=== PATIENT | male | born 1960 | race Caucasian/White ===

== ENCOUNTER 2016-08-15 07:32 | Day surgery (SDC) | payer MEDICARE, MEDICAID ==
[~2016-08-15] VITALS: Ht 170.2 cm; Wt 83.9 kg
--- NOTE | ~2016-08-15 | OR ---
PATIENT'S NAME: DALLAS CALI [facility] AGE: 55 Y [address] ROOM: [place] [address] LOCATION: [facility] [place] ADMIT DATE: 08/15/2016 OR/Procedure Report DISCHARGE DATE: FAMILY PHYSICIAN: Daljit Diaz MD ATTENDING PHYSICIAN: Yoana Grewal SURGEON: Yoana Grewal MD BRAILLE PROOFREADER: DATE OF PROCEDURE: 08/15/2016 PREOPERATIVE DIAGNOSIS: Microscopic hematuria. POSTOPERATIVE DIAGNOSIS: Microscopic hematuria. PROCEDURE PERFORMED: Cystoscopy with bilateral retrograde pyelogram. ANESTHESIA: General. COMPLICATIONS: None. INDICATION FOR PROCEDURE: The patient is a 55-year-old male with microscopic hematuria who is scheduled for renal transplantation. The patient is here for evaluation of his microscopic hematuria. DETAILS OF PROCEDURE: After informed consent was obtained, the patient was taken to the operating room. A general mask anesthetic was applied, and he was placed in the dorsal lithotomy position. The groin area was prepped and draped in a normal sterile fashion. Cystoscope was then introduced into the urethra and bladder without difficulty. The bladder mucosa was within normal limits without masses or lesions. An 8-Ukrainian cone-tipped catheter was placed in the patient's right ureteral orifice. Contrast was injected. This was repeated on the contralateral side. On plain film, there were no bony abnormalities. No visible stones noted. With injection of the contrast, the ureters were of normal caliber without filling defects. The collecting systems both were normal in size, again without masses or filling defects. Both systems drained well. Retrograde pyelograms were normal bilaterally. The urethra was normal. No strictures were noted. The prostatic urethra was nonobstructive. The bladder was then empty and the procedure terminated. The patient tolerated the procedure well and transferred to recovery room in good condition. YOANA GREWAL MD PATIENT'S NAME: DALLAS CALI [facility] AGE: 55 Y [address] ROOM: [place] [address] LOCATION: [facility] [place] ADMIT DATE: 08/15/2016 OR/Procedure Report DISCHARGE DATE: FAMILY PHYSICIAN: Daljit Diaz MD ATTENDING PHYSICIAN: Yoana Grewal/german /[id number] CC: MD Amadou Jason MD d: 08/15/16 1305 t: 09/05/16 1009, OPERATIVE SUMMARY
[~2016-08-15 07:32] MED LIST: CARDIZEM CD360 MG PO; DELTASONE20 MG PO; LASIX80 MG PO; NORCO 5-325 MG1 TAB PO; NORVASC5 MG PO; PHOSLO667 MG PO; PREDNISONE2.5 MG PO; PROTONIX40 MG PO; TOPROL XL 5050 MG PO; TYLENOL325 MG PO; VENLAFAXINE H37.5 M1 PO; ZOLOFT50 MG PO
[2016-08-15 08:13] LABS: BASOPHIL # 0.1 K/uL (0.0-0.2); EOSINOPHIL # 0.3 K/uL (0.0-0.5); EOSINOPHIL % 4.5 %; HEMATOCRIT 35.8 % (37.0-53.0); HEMOGLOBIN 12.3 g/dL (12.0-17.0); IMMATURE GRANULOCYTE % 0.4 %; LYMPHOCYTE # 1.2 K/uL (0.8-4.0); LYMPHOCYTE % 16.4 %; MCH 34.1 pg (27.0-34.0); MCHC 34.4 gm/dL (32.0-36.5); MCV 99.2 fl (83.0-98.0); MONOCYTE # 0.7 K/uL (0.0-1.0); MONOCYTE % 9.9 %; MPV 9.3 fl (9.4-12.4); NEUTROPHIL # (ANC) 4.9 K/uL (1.4-9.0); NEUTROPHIL % 67.8 %; NRBC % 0 /100WBC (0-0.00); PLATELET COUNT 201 K/uL (150-450); RBC 3.61 M/uL (4.00-6.00); WBC 7.2 K/uL (4.0-11.0)
[2016-08-15 08:29] LABS: ALBUMIN 3.3 gm/dL (3.5-5.0); ANION GAP 13.9 (10.0-19.0); CALCIUM 7.7 mg/dL (8.5-10.5); POTASSIUM 3.9 mMol/L (3.7-5.1); TOTAL BILIRUBIN 0.4 mg/dL (0.0-1.5); TOTAL PROTEIN 6.8 g/dL (6.0-8.4)
[2016-08-15 08:41] LABS: CREATININE 9.2 mg/dL (0.6-1.3)
[2016-09-12] MEDS ORDERED: ASPIRIN EC81 MG PO (15:34)
[2016-09-12] MEDS ORDERED: COREG6.25 MG PO (15:35)
[2016-09-12] MEDS ORDERED: MULTIVITAMIN (15:35)
[2016-09-12] MEDS ORDERED: DAILY MULTIVIT1 EAC1 PO (15:36)
[2016-09-12] MEDS ORDERED: MYCOPHENOLIC PO (15:40)
[2016-09-12] MEDS ORDERED: NYSTATIN100000 UNI PO (15:42)
[2016-09-12] MEDS ORDERED: PERCOCET 5-3251 EACH PO (15:43)
[2016-09-12] MEDS ORDERED: DELTASONE5 MG PO (15:47)
[2016-09-12] MEDS ORDERED: ZANTAC (NON-FO150 MG PO (15:47)
[2016-09-12] MEDS ORDERED: SENNA8.6 MG PO (15:48)
[2016-09-12] MEDS ORDERED: BACTRIM 400-801 EACH PO (15:50)
[2016-09-12] MEDS ORDERED: PROGRAF 1MG CAPS1 MG PO (15:51)
[2016-09-12] MEDS ORDERED: VALCYTE450 MG PO (15:52)
[2016-09-12] MEDS ORDERED: ZOLOFT50 MG PO (15:54)
[2016-09-12] MEDS ORDERED: TRIAMCINOLONE 080 GM TOP (15:55)
[2016-09-12] MEDS ORDERED: ONE DAILY COMP1 EAC1 PO (15:58)
== END 2016-08-15 10:25 | disposition disaster alternative care site (69) ==
LOC: GSDC 07:32
PROVIDERS: Urology
PROC: BT14YZZ Fluoroscopy of Kidneys, Ureters and Bladder using Other Contrast (ICD-10-PCS; principal; 2016-08-15)
DX: R31.29 Other microscopic hematuria (principal); F32.9 Major depressive disorder, single episode, unspecified; K21.9 Gastro-esophageal reflux disease without esophagitis; I12.0 Hypertensive chronic kidney disease with stage 5 chronic kidney disease or end stage renal disease; E11.22 Type 2 diabetes mellitus with diabetic chronic kidney disease; N18.6 End stage renal disease; F03.90 Unspecified dementia, unspecified severity, without behavioral disturbance, psychotic disturbance, mood disturbance, and anxiety; E78.5 Hyperlipidemia, unspecified; Z87.891 Personal history of nicotine dependence; Z99.2 Dependence on renal dialysis; Z90.81 Acquired absence of spleen; Z79.899 Other long term (current) drug therapy; Z98.890 Other specified postprocedural states
CPT/HCPCS: J1100; J1956; J2001; J2250; J2765; J7030

== ENCOUNTER → 2016-09-08 | Outpatient (CLI) | payer MEDICARE, MEDICAID ==
[~2016-09-08] MED LIST changes: +ASPIRIN EC81 MG PO; +BACTRIM 400-801 EACH PO; +COREG6.25 MG PO; +DAILY MULTIVIT1 EAC1 PO; +DELTASONE5 MG PO; +MULTIVITAMIN; +MYCOPHENOLIC PO; +NYSTATIN100000 UNI PO; +ONE DAILY COMP1 EAC1 PO; +PERCOCET 5-3251 EACH PO; +PROGRAF 1MG CAPS1 MG PO; +SENNA8.6 MG PO; +TRIAMCINOLONE 080 GM TOP; +VALCYTE450 MG PO; +ZANTAC (NON-FO150 MG PO
[2016-09-08 10:01] LABS: BASOPHIL % 0.3 %; EOSINOPHIL # 0.7 K/uL (0.0-0.5); EOSINOPHIL % 6.8 %; IMMATURE GRANULOCYTE # 0.1 K/uL (0.0-0.3); IMMATURE GRANULOCYTE % 1.3 %; LYMPHOCYTE % 9.2 %; MCV 100.5 fl (83.0-98.0); MONOCYTE # 1.1 K/uL (0.0-1.0); MONOCYTE % 10.5 %; MPV 9.5 fl (9.4-12.4); NEUTROPHIL # (ANC) 7.4 K/uL (1.4-9.0); NEUTROPHIL % 71.9 %; NRBC % 0 /100WBC (0-0.00); RDW-CV 14.2 % (11.9-14.6); WBC 10.3 K/uL (4.0-11.0)
[2016-09-08 10:02] LABS: HEMATOCRIT 21.4 % (37.0-53.0); HEMOGLOBIN 7.2 g/dL (12.0-17.0); MCH 33.8 pg (27.0-34.0); MCHC 33.6 gm/dL (32.0-36.5); PLATELET COUNT 294 K/uL (150-450); RBC 2.13 M/uL (4.00-6.00)
[2016-09-08 10:05] LABS: ANION GAP 13.9 (10.0-19.0); CALCIUM 7.9 mg/dL (8.5-10.5); MAGNESIUM 2.3 mg/dL (1.8-2.6); PHOSPHORUS 2.8 mg/dL (2.5-4.9); POTASSIUM 4.9 mMol/L (3.7-5.1)
[2016-09-08 10:06] LABS: CREATININE 4.4 mg/dL (0.6-1.3)
== END | disposition disaster alternative care site (69) ==
LOC: LHHL 09:41
PROVIDERS: Transplant Surgery
DX: Z94.0 Kidney transplant status (principal); Z51.81 Encounter for therapeutic drug level monitoring

== ENCOUNTER → 2016-09-15 | Outpatient (CLI) | payer MEDICARE, MEDICAID ==
[2016-09-15 09:14] LABS: BASOPHIL # 0.1 K/uL (0.0-0.2); BASOPHIL % 0.8 %; EOSINOPHIL # 0.2 K/uL (0.0-0.5); EOSINOPHIL % 1.6 %; HEMOGLOBIN 8.3 g/dL (12.0-17.0); IMMATURE GRANULOCYTE # 0.4 K/uL (0.0-0.3); IMMATURE GRANULOCYTE % 2.9 %; LYMPHOCYTE # 1.7 K/uL (0.8-4.0); LYMPHOCYTE % 13.4 %; MCH 32.4 pg (27.0-34.0); MCV 102.3 fl (83.0-98.0); MONOCYTE # 0.7 K/uL (0.0-1.0); MONOCYTE % 5.5 %; MPV 8.7 fl (9.4-12.4); NEUTROPHIL # (ANC) 9.6 K/uL (1.4-9.0); NEUTROPHIL % 75.8 %; NRBC % 0 /100WBC (0-0.00); RBC 2.56 M/uL (4.00-6.00); WBC 12.6 K/uL (4.0-11.0)
[2016-09-15 09:15] LABS: HEMATOCRIT 26.2 % (37.0-53.0); MCHC 31.7 gm/dL (32.0-36.5); PLATELET COUNT 386 K/uL (150-450); RDW-CV 16.9 % (11.9-14.6)
[2016-09-15 09:24] LABS: ANION GAP 12.4 (10.0-19.0); CALCIUM 8.3 mg/dL (8.5-10.5); CREATININE 1.9 mg/dL (0.6-1.3); MAGNESIUM 1.6 mg/dL (1.8-2.6); PHOSPHORUS 2.2 mg/dL (2.5-4.9); POTASSIUM 5.4 mMol/L (3.7-5.1)
== END | disposition disaster alternative care site (69) ==
LOC: LHHL 09:05
PROVIDERS: Transplant Surgery
DX: Z48.22 Encounter for aftercare following kidney transplant (principal); I12.0 Hypertensive chronic kidney disease with stage 5 chronic kidney disease or end stage renal disease; N18.6 End stage renal disease; Z94.0 Kidney transplant status

== ENCOUNTER → 2016-09-19 | Outpatient (CLI) | payer MEDICARE, MEDICAID ==
[2016-09-19 10:08] LABS: CALCIUM 8.4 mg/dL (8.5-10.5); CREATININE 1.6 mg/dL (0.6-1.3); MAGNESIUM 1.6 mg/dL (1.8-2.6); PHOSPHORUS 2.5 mg/dL (2.5-4.9)
[2016-09-19 10:16] LABS: ANION GAP 11.6 (10.0-19.0); POTASSIUM 5.6 mMol/L (3.7-5.1)
[2016-09-19 10:25] LABS: HEMOGLOBIN 9.3 g/dL (12.0-17.0); MCH 33.3 pg (27.0-34.0); MCHC 32.1 gm/dL (32.0-36.5); MCV 103.9 fl (83.0-98.0); MPV 9.2 fl (9.4-12.4); PLATELET COUNT 401 K/uL (150-450); RBC 2.79 M/uL (4.00-6.00); RDW-CV 16.7 % (11.9-14.6)
[2016-09-19 11:29] LABS: ABSOLUTE NEUTROPHIL CT (ANC) 7.1 K/uL (1.4-9.0); LYMPHOCYTE # 1.7 K/uL (0.8-4.0); LYMPHOCYTE % 17 %; SEGMENTED NEUTROPHIL # 7.1 K/uL (1.4-9.0); SEGMENTED NEUTROPHIL % 71 %
== END | disposition disaster alternative care site (69) ==
LOC: LHHL 09:52
PROVIDERS: Transplant Surgery
DX: Z48.22 Encounter for aftercare following kidney transplant (principal); I12.0 Hypertensive chronic kidney disease with stage 5 chronic kidney disease or end stage renal disease; Z94.0 Kidney transplant status; N18.6 End stage renal disease

== ENCOUNTER → 2016-09-22 | Outpatient (CLI) | payer MEDICARE, MEDICAID ==
[2016-09-22 09:42] LABS: BASOPHIL # 0.1 K/uL (0.0-0.2); EOSINOPHIL # 0.1 K/uL (0.0-0.5); EOSINOPHIL % 1.4 %; HEMATOCRIT 31.3 % (37.0-53.0); IMMATURE GRANULOCYTE # 0.1 K/uL (0.0-0.3); IMMATURE GRANULOCYTE % 0.7 %; LYMPHOCYTE # 1.8 K/uL (0.8-4.0); LYMPHOCYTE % 18.6 %; MCH 33.2 pg (27.0-34.0); MCHC 31.9 gm/dL (32.0-36.5); MONOCYTE # 0.7 K/uL (0.0-1.0); MONOCYTE % 7.7 %; NEUTROPHIL # (ANC) 6.7 K/uL (1.4-9.0); NEUTROPHIL % 70.6 %; NRBC % 0 /100WBC (0-0.00); PLATELET COUNT 373 K/uL (150-450); RBC 3.01 M/uL (4.00-6.00); WBC 9.5 K/uL (4.0-11.0)
[2016-09-22 09:52] LABS: ANION GAP 11.4 (10.0-19.0); CALCIUM 8.6 mg/dL (8.5-10.5); CREATININE 1.6 mg/dL (0.6-1.3); MAGNESIUM 1.7 mg/dL (1.8-2.6); PHOSPHORUS 2.4 mg/dL (2.5-4.9); POTASSIUM 5.4 mMol/L (3.7-5.1)
== END | disposition disaster alternative care site (69) ==
LOC: LHHL 09:24
PROVIDERS: Transplant Surgery
DX: Z48.22 Encounter for aftercare following kidney transplant (principal); N18.6 End stage renal disease; I12.0 Hypertensive chronic kidney disease with stage 5 chronic kidney disease or end stage renal disease

== ENCOUNTER → 2016-09-26 | Outpatient (CLI) | payer MEDICARE, MEDICAID ==
[2016-09-26 09:25] LABS: BILIRUBIN URINE NEGATIVE (NEGATIVE); BLOOD URINE 150 /UL (NEGATIVE); COLOR URINE YELLOW (YELLOW); GLUCOSE URINE NEGATIVE (NEGATIVE); KETONE URINE NEGATIVE (NEGATIVE); LEUKOCYTES URINE NEGATIVE /UL (NEGATIVE); NITRITE URINE NEGATIVE (NEGATIVE); PROTEIN URINE NEGATIVE (NEGATIVE); TURBIDITY URINE 1+ (CLEAR); UROBILINOGEN URINE NORMAL (NORMAL)
[2016-09-26 09:35] LABS: RBC URINE 20-50 #/HPF (NEGATIVE); WBC URINE RARE #/HPF (NEGATIVE)
[2016-09-26 09:36] LABS: BACTERIA URINE NEGATIVE (NEGATIVE); EPITHELIAL URINE RARE #/HPF (NEGATIVE)
[2016-09-26 09:39] LABS: BASOPHIL # 0.1 K/uL (0.0-0.2); BASOPHIL % 0.7 %; EOSINOPHIL # 0.1 K/uL (0.0-0.5); EOSINOPHIL % 1.6 %; HEMATOCRIT 30.7 % (37.0-53.0); HEMOGLOBIN 9.7 g/dL (12.0-17.0); IMMATURE GRANULOCYTE # 0.1 K/uL (0.0-0.3); IMMATURE GRANULOCYTE % 0.9 %; LYMPHOCYTE % 24.3 %; MCH 33.2 pg (27.0-34.0); MCHC 31.6 gm/dL (32.0-36.5); MCV 105.1 fl (83.0-98.0); MONOCYTE # 0.6 K/uL (0.0-1.0); MONOCYTE % 7.4 %; MPV 9.2 fl (9.4-12.4); NEUTROPHIL # (ANC) 5.3 K/uL (1.4-9.0); NEUTROPHIL % 65.1 %; NRBC % 0 /100WBC (0-0.00); PLATELET COUNT 380 K/uL (150-450); RBC 2.92 M/uL (4.00-6.00); RDW-CV 17.1 % (11.9-14.6); WBC 8.2 K/uL (4.0-11.0)
[2016-09-26 09:48] LABS: ANION GAP 10.7 (10.0-19.0); CALCIUM 8.3 mg/dL (8.5-10.5); CREATININE 1.6 mg/dL (0.6-1.3); MAGNESIUM 1.8 mg/dL (1.8-2.6); PHOSPHORUS 2.8 mg/dL (2.5-4.9)
[2016-09-26 09:49] LABS: POTASSIUM 5.7 mMol/L (3.7-5.1)
== END ==
LOC: LHHL 09:16
PROVIDERS: Transplant Surgery
DX: Z48.22 Encounter for aftercare following kidney transplant (principal); Z94.0 Kidney transplant status; Z79.899 Other long term (current) drug therapy

== ENCOUNTER → 2016-10-03 | Outpatient (CLI) | payer MEDICARE, MEDICAID ==
[2016-10-03 09:45] LABS: BASOPHIL # 0.1 K/uL (0.0-0.2); BASOPHIL % 0.6 %; EOSINOPHIL # 0.2 K/uL (0.0-0.5); EOSINOPHIL % 1.9 %; HEMOGLOBIN 11.1 g/dL (12.0-17.0); IMMATURE GRANULOCYTE # 0.2 K/uL (0.0-0.3); LYMPHOCYTE # 1.9 K/uL (0.8-4.0); LYMPHOCYTE % 20.7 %; MCH 33.7 pg (27.0-34.0); MCHC 31.7 gm/dL (32.0-36.5); MCV 106.4 fl (83.0-98.0); MONOCYTE # 0.6 K/uL (0.0-1.0); MONOCYTE % 5.9 %; NEUTROPHIL # (ANC) 6.4 K/uL (1.4-9.0); NEUTROPHIL % 68.9 %; NRBC % 0 /100WBC (0-0.00); PLATELET COUNT 334 K/uL (150-450); RBC 3.29 M/uL (4.00-6.00); WBC 9.3 K/uL (4.0-11.0)
[2016-10-03 09:55] LABS: ANION GAP 12.1 (10.0-19.0); CALCIUM 8.3 mg/dL (8.5-10.5); CREATININE 1.7 mg/dL (0.6-1.3); MAGNESIUM 1.7 mg/dL (1.8-2.6); PHOSPHORUS 2.3 mg/dL (2.5-4.9); POTASSIUM 5.1 mMol/L (3.7-5.1)
== END ==
LOC: LHHL 09:35
PROVIDERS: Transplant Surgery
DX: Z48.22 Encounter for aftercare following kidney transplant (principal); I12.9 Hypertensive chronic kidney disease with stage 1 through stage 4 chronic kidney disease, or unspecified chronic kidney disease; N18.9 Chronic kidney disease, unspecified; Z94.0 Kidney transplant status

== ENCOUNTER 2016-10-06 05:57 | Emergency (ER) | payer MEDICARE, MEDICAID ==
--- NOTE | ~2016-10-06 | ER ---
PATIENT'S NAME: DALLAS CALI [facility] AGE: 56 Y [address] ROOM: [place] [address] LOCATION: [facility] ADMIT DATE: 10/06/2016 ER/Outpatient Report DISCHARGE DATE: 10/06/2016 FAMILY PHYSICIAN: Daljit Diaz MD ATTENDING PHYSICIAN: Bob Schmitt Time of Arrival: 0557 hours. Time of Evaluation: 0557 hours. CHIEF COMPLAINT: Shortness of breath. HISTORY OF PRESENT ILLNESS: The patient is a 56-year-old male, who presents to the emergency department today with chief complaint of shortness of breath. He reports this started about 5 days prior to arrival and has progressively worsened. He is wheezing. Denies any chest pain. Does have mild cough. Denies any fevers or chills. The patient recently underwent a kidney transplant 5 weeks ago. The patient does have a long history of smoking. He has no formal diagnosis of chronic obstructive pulmonary disease or emphysema. The patient denies any pain currently. 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 PAST SURGICAL HISTORY: Kidney transplant. SOCIAL HISTORY: The patient smoked a pack per day for 40 years, quit 2 months ago. Denies any alcohol or illicit drug use. ALLERGIES: NO KNOWN DRUG ALLERGIES. MEDICATIONS: Please see list. PRIMARY CARE DOCTOR: Dr. Diaz in [place]. JACQUARD CARD CUTTER: Dr. Hooks. PATIENT'S NAME: DALLAS CALI [facility] AGE: 56 Y [address] ROOM: [place] [address] LOCATION: [facility] ADMIT DATE: 10/06/2016 ER/Outpatient Report DISCHARGE DATE: 10/06/2016 FAMILY PHYSICIAN: Daljit Diaz MD ATTENDING PHYSICIAN: Bob Schmitt REVIEW OF SYSTEMS: All systems are reviewed by myself and are negative with the exception of those discussed in the HPI and past medical history. PHYSICAL EXAMINATION: VITAL SIGNS: Weight 82 kg. Blood pressure 203/106, pulse 108, respiratory rate 34, temperature 97.9, and oxygen saturation 94% on room air. GENERAL: The patient is a 56-year-old male, who appears at stated age, in acute respiratory distress. HEENT: Head: Normocephalic, atraumatic. Pupils are equal, round, and reactive to light. Oropharynx is clear. NECK: Supple. There is no nuchal rigidity. CARDIOVASCULAR: Tachycardic. No murmurs, rubs, or gallops. LUNGS: Expiratory wheezes. Tachypnea. ABDOMEN: Soft. Mild diffuse tenderness to palpation. MUSCULOSKELETAL: The patient ambulates in the room. SKIN: Warm and dry. No rashes or lesions are noted. LABORATORY DATA AND X-RAYS: Venous blood gas: 7.25/36/113/16/-10.6. Lactate normal. CBC: White blood cell count 13.3. Urinalysis: 25 leukocyte esterase, 100 protein, 5 ketones, 250 blood, 10 to 20 wbc's, 50 to 100 rbc's, 5 to 10 epithelials, few bacteria. CMP: Sodium 139, potassium 5.4, chloride 114, CO2 of 16, BUN 25, creatinine 1.5, glucose 125. LFTs are normal. Cardiac enzymes are normal. ProBNP is 1797. Procalcitonin is less than 0.05. Occult blood is positive. Fecal white blood cells negative. Two-view chest x-ray shows no acute process. Ova and parasites negative. Further laboratory analysis is pending. IMPRESSION: 1. Dyspnea with suspected underlying undiagnosed exacerbation of chronic obstructive pulmonary disease. 2. Status post kidney transplant, 5 weeks. 3. Initial visit. EMERGENCY DEPARTMENT COURSE: The patient is brought back to the examination room. Seen and evaluated by myself. IV is established. Laboratory analysis and imaging are obtained as described above. The patient is given oofy-um-hpgm DuoNeb breathing treatments. This resulted in significant improvement in the patient's symptoms. He is given 4 mg of Zofran IV for nausea. I have discussed the results of the workup with the patient. He does feel much improved at this time. I have discussed the case with the kidney warranty coordinator on- call, she has recommended we contact the doper on-call with Kidney Transplant. We have talked with Dr. Gunderson at [facility]. I have discussed the case with him. We have discussed treating the patient's acute PATIENT'S NAME: DALLAS CALI [facility] AGE: 56 Y [address] ROOM: [place] [address] LOCATION: [facility] ADMIT DATE: 10/06/2016 ER/Outpatient Report DISCHARGE DATE: 10/06/2016 FAMILY PHYSICIAN: Daljit Diaz MD ATTENDING PHYSICIAN: Bob Schmitt exacerbation of COPD with doxycycline and prednisone. I have discussed followup with Nephrology team as scheduled. We have also contacted the patient's home health care nurse. We have discussed the [id number] instructions including worsening of symptoms or any other concerns to return to the emergency department. I have asked he follows up with Dr. Diaz for re- evaluation as well. The patient did have occult blood in the stool. I have discussed this with him. He does report he had a colonoscopy a year ago that was unremarkable. I have still discussed, he is to follow up with Dr. Diaz for further evaluation of this. He is discharged with doxycycline, albuterol, and prednisone. DISPOSITION: The patient is discharged to home in good condition. DO SANTI EUBANKS/german /[id number] d: 10/06/16 0936 t: 10/07/16 1448, OUTPATIENT REPORT
[2016-10-06 06:39] LABS: BICARBONATE 15.8 mmol/L (18.0-23.0); PCO2 36 mmHg (35-45); PO2 113 mmHg (80-90)
[2016-10-06 06:42] LABS: BASOPHIL # 0.1 K/uL (0.0-0.2); BASOPHIL % 0.4 %; EOSINOPHIL # 0.2 K/uL (0.0-0.5); EOSINOPHIL % 1.4 %; HEMATOCRIT 37.7 % (37.0-53.0); HEMOGLOBIN 12.1 g/dL (12.0-17.0); IMMATURE GRANULOCYTE # 0.1 K/uL (0.0-0.3); IMMATURE GRANULOCYTE % 0.7 %; LYMPHOCYTE # 0.8 K/uL (0.8-4.0); LYMPHOCYTE % 6.3 %; MCH 33.6 pg (27.0-34.0); MCHC 32.1 gm/dL (32.0-36.5); MCV 104.7 fl (83.0-98.0); MONOCYTE # 0.8 K/uL (0.0-1.0); MONOCYTE % 5.8 %; MPV 8.8 fl (9.4-12.4); NEUTROPHIL # (ANC) 11.4 K/uL (1.4-9.0); NEUTROPHIL % 85.4 %; NRBC % 0 /100WBC (0-0.00); PLATELET COUNT 284 K/uL (150-450); RDW-CV 16.5 % (11.9-14.6); WBC 13.3 K/uL (4.0-11.0)
[2016-10-06 07:00] LABS: BILIRUBIN URINE NEGATIVE (NEGATIVE); BLOOD URINE 250 /UL (NEGATIVE); COLOR URINE YELLOW (YELLOW); GLUCOSE URINE NEGATIVE (NEGATIVE); KETONE URINE 5 mg/dL (NEGATIVE); LEUKOCYTES URINE 25 /UL (NEGATIVE); NITRITE URINE NEGATIVE (NEGATIVE); PROTEIN URINE 100 mg/dL (NEGATIVE); TURBIDITY URINE 1+ (CLEAR); UROBILINOGEN URINE NORMAL (NORMAL)
[2016-10-06 07:04] LABS: ALK PHOS 115 IU/L (33-138); ALT 17 IU/L (12-78); AST 13 IU/L (10-40); BLOOD UREA NITROGEN 25 mg/dL (6-24); CALCIUM 8.8 mg/dL (8.5-10.5); CHLORIDE 114 mMol/L (96-110); CPK 63 IU/L (35-332); CREATININE 1.5 mg/dL (0.6-1.3); POTASSIUM 5.4 mMol/L (3.7-5.1); SODIUM 139 mMol/L (135-145); TOTAL PROTEIN 7.7 g/dL (6.0-8.4)
[2016-10-06 07:06] LABS: ANION GAP 14.4 (10.0-19.0); CO2 16 mMol/L (22-32); TOTAL BILIRUBIN 0.3 mg/dL (0.0-1.5)
[2016-10-06 07:07] LABS: RBC URINE 50-100 #/HPF (NEGATIVE)
[2016-10-06 07:09] LABS: AMORPHOUS URINE 2+ (NEGATIVE); BACTERIA URINE FEW (NEGATIVE); MUCUS URINE 2+ (NEGATIVE)
[2016-10-06 08:37] LABS: MAGNESIUM 1.6 mg/dL (1.8-2.6); PHOSPHORUS 2.5 mg/dL (2.5-4.9)
== END 2016-10-06 08:44 | disposition disaster alternative care site (69) ==
LOC: GMED 05:57
PROVIDERS: Emergency Medicine
DX: R06.00 Dyspnea, unspecified (principal); I10 Essential (primary) hypertension; F32.9 Major depressive disorder, single episode, unspecified; E78.5 Hyperlipidemia, unspecified; K21.9 Gastro-esophageal reflux disease without esophagitis; F17.210 Nicotine dependence, cigarettes, uncomplicated; Z94.0 Kidney transplant status; Z79.899 Other long term (current) drug therapy; Z79.82 Long term (current) use of aspirin
CPT/HCPCS: J2405